=== PATIENT | female | born 1965 | race Caucasian/White ===

== ENCOUNTER 2017-01-19 15:17 | Emergency (ER) | payer MEDICAID, OTHER ==
[~2017-01-19] VITALS: Ht 162.6 cm; Wt 87.0 kg
[2017-01-19 15:22] VITALS: Ht 162.6 cm; Wt 87.0 kg
--- NOTE | 2017-01-19 18:35 | ERD ---
ER Documentation Chief Complaint Date/Time DATE: 01/19/17 TIME: 18:33 Chief Complaint PAINFUL URINATION X 1 DAY HPI This is a 51-year-old female who presents the emergency department today complaining of pain with urination for the past couple of days. States she is currently receiving chemotherapy. States she has had hydronephrosis in her left kidney and her right kidney is only one that is functioning. States she has had urinary tract infections in the past and has taken Cipro. Denies any fevers or chills, nausea vomiting, back pain. ROS All systems reviewed and are negative except as per history of present illness. Medications Home Meds Active Scripts Cephalexin* (Keflex*) 500 Mg Capsule, 500 MG PO QID for 7 Days, CAP Prov:OBEY GARCIA PA-C 01/19/17 Physical Exam Vitals Vital Signs Date Time Temp Pulse Resp B/P Pulse Ox O2 Delivery O2 Flow Rate FiO2 01/19/17 15:22 98.3 68 18 139/70 98 Physical Exam Const: NAD Head: Atraumatic Eyes: Normal Conjunctiva ENT: Normal External Ears, Nose and Mouth. Neck: Full range of motion..~ No meningismus. Resp: Clear to auscultation bilaterally Cardio: Regular rate and rhythm, no murmurs Abd: Soft, mild suprapubic tenderness non distended. Normal bowel sounds Skin: No petechiae or rashes Back: No midline or flank tenderness Ext: No cyanosis, or edema Neur: Awake and alert Psych: Normal Mood and Affect Results 24 hrs Laboratory Tests Test 01/19/17 18:40 Urine Color COLORLESS Urine Clarity CLEAR Urine pH 7.0 Urine Specific [place] 1.001 Urine Ketones NEGATIVEmg/dL Urine Nitrite NEGATIVEmg/dL Urine Bilirubin NEGATIVEmg/dL Urine Urobilinogen NEGATIVEmg/dL Urine Leukocyte Esterase 1+Sully/ul Urine Microscopic RBC 0/HPF Urine Microscopic WBC 1/HPF Urine Hemoglobin NEGATIVEmg/dL Urine Glucose NEGATIVEmg/dL Urine Total Protein NEGATIVEmg/dl Procedures/MDM This 51-year-old female presents the emergency department today complaining of burning and pain with urination for the past couple of days. Patient has had multiple urinary tract infections in the past. States she does not have a primary care doctor but is currently receiving chemotherapy. This is the patient's first visit to this emergency department.Patient does have a history of hydronephrosis in her left kidney. Given this I did obtain a UA and send the urine for culture. UAShows 1+ leukocyte esterase. Given patient's dysuria will treat the patient with Keflex for urinary tract infection. She is afebrile and otherwise well- appearing. Low suspicion for pyelonephritis or nephrolithiasis. Urine was sent for culture At this time the patient is stable for discharge and outpatient management. Patient should follow up with their PCP in the next 1-2 days. They may return to the emergency department sooner for any persistent or worsening of symptoms. Patient understood and agreed with the plan. Departure Diagnosis: Primary Impression: UTI (urinary tract infection) Urinary tract infection type: site unspecified Hematuria presence: without hematuria Qualified Code: N39.0 - Urinary tract infection without hematuria, site unspecified Condition: OBEY Mahajan PA-C Jan 19, 2017 18:35
[2017-01-19 19:09] LABS: ADD UMIC YES; UR ASCORBIC ACID NEGATIVE (NEGATIVE); UR BILIRUBIN (Dip) NEGATIVE (NEGATIVE); UR BLOOD (Dip) NEGATIVE (NEGATIVE); UR CLARITY CLEAR (CLEAR); UR COLOR COLORLESS (YELLOW); UR GLUCOSE (Dip) NEGATIVE (NEGATIVE); UR KETONES (Dip) NEGATIVE (NEGATIVE); UR LEUKOCYTE ESTERASE (Dip) 1+ Leu/ul (NEGATIVE); UR NITRITE (Dip) NEGATIVE (NEGATIVE); UR RBC 0 /HPF (0-5); UR SPECIFIC GRAVITY (Dip) 1.001 (1.003-1.030); UR TOTAL PROTEIN (Dip) NEGATIVE (NEGATIVE); UR UROBILINOGEN (Dip) NEGATIVE (NEGATIVE)
[2017-01-19] MEDS ORDERED: CEPH-443 PO (19:25)
[2017-01-19 19:31] VITALS: BP 128/73; PULSE 79; RESP 18; TEMP 98.5
== END 2017-01-19 19:31 | disposition home or self-care (01) ==
LOC: FTE 15:17
DX: N39.0 Urinary tract infection, site not specified (principal)
CPT/HCPCS: 81001; 87086; Z7502; 99283